=== PATIENT | female | born 1940 | race Caucasian/White ===

== ENCOUNTER → 2017-08-08 | Outpatient (CLI) | payer OTHER, BC ==
[~2017-08-08] MED LIST: AVAPRO300 MG PO; COREG6.25 MG PO; COUMADIN 2.5MG2.5 M1 PO; COUMADIN 5 MG TA5 M1 PO; LASIX 20 MG TAB20 MG; LASIX 40 MG TAB40 M2 PO; LEVOTHYROXIN0.088 MG PO; LEXAPRO20 MG PO; LIPITOR10 MG PO; MIRAPEX1.5 MG PO; NASAL SPRAY30 M3 NASAL; NEXIUM40 MG PO; NORCO 5-325 TA1 EACH PO; PACERONE200 MG PO; SLOW-MAG64 M1 PO; WELLBUTRIN 100100 MG PO; WELLBUTRIN XL150 MG PO; ZPAK PO
== END ==
LOC: MRI 11:12
DX: I63.9 Cerebral infarction, unspecified (principal)

== ENCOUNTER 2018-10-31 22:21 | Observation (INO) | payer OTHER, BC ==
[~2018-10-31] VITALS: Ht 152.4 cm; Wt 99.8 kg
[2018-10-31 22:44] LABS: ABSOLUTE NEUTROPHILS 4.7 thou/uL (1.4-8.2); BASOPHILS 0.5 % (0.0-2.0); EOSINOPHILS 5.1 % (0.0-3.0); HEMATOCRIT 39.3 % (37.0-47.0); HEMOGLOBIN 13.1 gm/dL (12.0-15.0); LYMPHOCYTES 20.6 % (24.0-44.0); MCH 29.4 pg (26.0-34.0); MCHC 33.3 g/dL (28.0-37.0); MCV 88.4 fL (80.0-100.0); MONOCYTES 8.6 % (1.0-8.0); PLATELET COUNT 188 thou/uL (150-400); POLYS 65.2 % (36.0-66.0); RBC 4.45 mil/uL (4.20-5.00); RDW 13.8 % (10.5-14.5); WBC 7.2 thou/uL (4.0-11.0)
[2018-10-31 22:54] LABS: ANION GAP 7 mmol/L (7-16); BUN 29 mg/dL (7-18); CHLORIDE 106 mmol/L (98-107); CO2 31 mmol/L (21-32); CREATININE 1.1 mg/dL (0.6-1.0); GLUCOSE 112 mg/dL (74-106); POTASSIUM 4.1 mmol/L (3.5-5.1); SODIUM 144 mmol/L (136-145)
[2018-10-31 23:02] LABS: ALBUMIN 3.2 g/dL (3.4-5.0); MAGNESIUM 2.1 mg/dL (1.8-2.4); SGOT 17 U/L (15-37); SGPT 8 U/L (30-65); TOTAL BILIRUBIN 0.4 mg/dL (<0.1-1.0); TOTAL PROTEIN 7.2 g/dL (6.4-8.2); TROPONIN-I <0.06 ng/mL (<0.06)
[2018-10-31 23:41] LABS: URINE BILIRUBIN NEGATIVE (Negative); URINE BLOOD NEGATIVE (Negative); URINE CLARITY CLEAR; URINE COLOR YELLOW; URINE GLUCOSE-RANDOM* NEGATIVE (Negative); URINE KETONES NEGATIVE (Negative); URINE NITRITE-REFLEX NEGATIVE (Negative); URINE PROTEIN (DIPSTICK) NEGATIVE (Negative); URINE UROBILINOGEN 0.2 E.U./dl (0.2-1.0)
[2018-10-31 23:42] LABS: URINE LEUKOCYTES-REFLEX NEGATIVE (Negative)
[2018-11-01 00:05] LABS: AMP/METHAMP Negative (Negative); BARBITURATES Negative (Negative); BENZODIAZEPINES Negative (Negative); COCAINE Negative (Negative); METHADONE Negative (Negative); OPIATES Negative (Negative); PCP Negative (Negative)
[2018-11-01 00:35] VITALS: BP 133/33
[2018-11-01] MEDS ORDERED: ACCUNEB SO1.25 MG/1 INH (00:45)
[2018-11-01] MEDS ORDERED: NORVASC5 MG PO (00:45)
[2018-11-01] MEDS ORDERED: ASPIR 8181 MG PO (00:49)
[2018-11-01] MEDS ORDERED: SINEMET 25-1001 EAC1 PO (00:50)
[2018-11-01] MEDS ORDERED: OCCUVITE PO (00:51)
[2018-11-01] MEDS ORDERED: FOLIC ACID1 MG PO (00:51)
[2018-11-01] MEDS ORDERED: PYRIDOXINE HCL50 MG PO (00:52)
[2018-11-01] MEDS ORDERED: LYRICA 50 MG50 MG PO (00:52)
[2018-11-01 01:54] VITALS: BP 107/40
--- NOTE | 2018-11-01 02:00 | NUR ---
Pt. arrived to the unit from the emergency room accompanied by staff and her daughter. Admission assessment and history is completed. Pt. alert and oriented times four. She did c/o pain to her left wrist from carpal tunnel. Po tylenol given (see emar) with some relief of pain noted. Bed alarm is on.
[2018-11-01 02:33] VITALS: BP 156/47
[2018-11-01 04:48] VITALS: BP 134/63
[2018-11-01 07:25] VITALS: BP 131/47
[2018-11-01 10:50] VITALS: BP 131/47
--- NOTE | 2018-11-01 13:44 | EKG ---
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
== END 2018-11-01 11:30 | disposition home or self-care (01) ==
LOC: ER 22:21 → EROBS 11-01 00:12 → 4W 11-01 01:37
PROVIDERS: Emergency Medicine; ADMIT Hospitalist
DX: T42.6X1A Poisoning by other antiepileptic and sedative-hypnotic drugs, accidental (unintentional), initial encounter (principal); I12.9 Hypertensive chronic kidney disease with stage 1 through stage 4 chronic kidney disease, or unspecified chronic kidney disease; N18.9 Chronic kidney disease, unspecified; N17.9 Acute kidney failure, unspecified; E78.00 Pure hypercholesterolemia, unspecified; E03.9 Hypothyroidism, unspecified; R41.82 Altered mental status, unspecified; G20 Parkinson's disease; I48.0 Paroxysmal atrial fibrillation; Z79.82 Long term (current) use of aspirin; Z79.899 Other long term (current) drug therapy; Y92.89 Other specified places as the place of occurrence of the external cause

== ENCOUNTER 2019-07-29 00:35 | Inpatient (IN) | payer OTHER, BC ==
[~2019-07-29] VITALS: Ht 152.4 cm; Wt 104.3 kg
[~2019-07-29 00:35] MED LIST changes: +ASPIR 8181 MG PO; +FOLIC ACID1 MG PO; +LYRICA 50 MG50 MG PO; +NORCO 7.5-3251 EACH PO; +NORVASC5 MG PO; +OCCUVITE PO; +PROAIR HFA8.5 GM INH; +PYRIDOXINE HCL50 MG PO; +SINEMET 25-1001 EAC1 PO
[2019-07-29 00:37] VITALS: BP 139/47
[2019-07-29] MEDS ORDERED: CYMBALTA20 MG PO (01:27)
[2019-07-29] MEDS ORDERED: GLUCOSAMINE HC500 M1 PO (01:28)
[2019-07-29] MEDS ORDERED: OXYBUTYNIN CHLOR5 M1 PO (01:29)
[2019-07-29 01:30] LABS: ABSOLUTE NEUTROPHILS 4.6 thou/uL (1.4-8.2); BASOPHILS 0.5 % (0.0-2.0); EOSINOPHILS 3.3 % (0.0-3.0); HEMATOCRIT 40.4 % (37.0-47.0); HEMOGLOBIN 13.1 gm/dL (12.0-15.0); LYMPHOCYTES 19.7 % (24.0-44.0); MCH 29.6 pg (26.0-34.0); MCHC 32.4 g/dL (28.0-37.0); MCV 91.1 fL (80.0-100.0); MONOCYTES 8.9 % (1.0-8.0); PLATELET COUNT 169 thou/uL (150-400); POLYS 67.6 % (36.0-66.0); RBC 4.44 mil/uL (4.20-5.00); RDW 14.7 % (10.5-14.5); WBC 6.8 thou/uL (4.0-11.0)
[2019-07-29] MEDS ORDERED: VALSARTAN160 MG PO (01:30)
[2019-07-29 01:33] LABS: CALCIUM 8.7 mg/dL (8.5-10.1); POTASSIUM 4.2 mmol/L (3.5-5.1)
[2019-07-29 06:27] LABS: APTT 25.9 Seconds (24.5-32.8); PROTIME 10.7 Seconds (9.3-11.4)
[2019-07-29 06:40] VITALS: BP 87/36
[2019-07-29 07:00] VITALS: BP 109/30
--- NOTE | 2019-07-29 07:50 | NUR ---
ASSUMED CARE OF PATIENT APPROX. 0720. PATIENT A&OX4, NO SIGNS OF DISTRESS, WILL CONTINUE TO MONITOR.
--- NOTE | 2019-07-29 13:51 | NUR ---
PATIENT SEEN BY DR. GARCÍA THIS DATE. PATIENT WITH COMMINUTED FX OF DISTAL HUMERUS. PATIENT HAS NOT BEEN SEEN BY ORTHO OR THERAPIES YET. WILL CONTINUE TO FOLLOW FOR POTENTIAL ACUTE REHAB NEEDS.
--- NOTE | 2019-07-29 15:34 | NUR ---
PT ADMITTED RELATED TO FALL, OPEN L HUMERUS FX. CM REVIEWED CHART AND SPOKE WITH CARE TEAM. CM MET WITH PT AND DTR ROSALIND AT BEDSIDE THIS DAY. PT IS A&O X4. CM ROLE INTRODCUED. PT INDICATED SHE LIVES IN ASSISTED LIVING AT [facility] [place]. 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 PT INDICATED SHE HAD [facility] IN THE PAST AND HAD GONE TO [facility] FOR OP PT. PT INDICATED SHE WOULD HOPE TO BE ABLE TO RETURN HOME ONCE MEDICALLY STABLE BUT THAT SHE WOULD BE RECEPTIVE TO POST ACUTE CARE STAY IF RECOMMENDED UPON DC. CM TO FOLLOW INDICATED WITH DC PLANNING.
[2019-07-29 16:13] VITALS: BP 115/30
[2019-07-29 19:00] VITALS: BP 117/31
[2019-07-29 22:16] VITALS: BP 127/38
[2019-07-30 03:27] VITALS: BP 143/38
[2019-07-30 05:37] LABS: ABSOLUTE NEUTROPHILS 3.7 thou/uL (1.4-8.2); BASOPHILS 0.3 % (0.0-2.0); HEMATOCRIT 36.9 % (37.0-47.0); LYMPHOCYTES 19.5 % (24.0-44.0); MCH 29.8 pg (26.0-34.0); MCHC 32.5 g/dL (28.0-37.0); MCV 91.7 fL (80.0-100.0); MONOCYTES 11.2 % (1.0-8.0); PLATELET COUNT 149 thou/uL (150-400); RBC 4.02 mil/uL (4.20-5.00); RDW 14.7 % (10.5-14.5); WBC 5.6 thou/uL (4.0-11.0)
--- NOTE | 2019-07-30 05:45 | NUR ---
Assessment completed. pt a&ox4. pt had a restful night. pain was controlled with narco and tylenol. morphine wasn't given due to low BP. gerardo in place and patent. no s/s of distress. pt wilde been npo after midnight for possible ortho surgery today. call light withi reach. fall prec in place. will cont to monitor
[2019-07-30 05:47] LABS: CREATININE 0.8 mg/dL (0.6-1.0); MAGNESIUM 1.7 mg/dL (1.8-2.4); POTASSIUM 4.2 mmol/L (3.5-5.1)
[2019-07-30 07:35] VITALS: BP 142/70
--- NOTE | 2019-07-30 11:59 | NUR ---
PATIENT TO HAVE SURGERY ON HER ELBOW TODAY. WILL AWAIT POST-OP ORDERS.
--- NOTE | 2019-07-30 13:15 | NUR ---
Nutrition: Received consult for 'other'. Pt newly admitted 07/29. Here s/p fall, with open L humerus fracture w/ dislocation of elbow. Pt NA this morning and at visit this afternoon, sound asleep. Is NPO with planned surgery today (ORIF per notes). Pt is morbidly obese w/ BMI 44.9 kg/m2 (class III high risk). Will defer wt loss education at this time given upcoming surgery and d/t advanced age in her 80s. Will reassess next week once meal data starts to become available and pt able to resume eating after surgery. Keep as low nutrition risk for the time being. On folic acid and B12 supplementation as well as IVFs. Vitamin D levels pending.
--- NOTE | 2019-07-30 18:32 | NUR ---
CONSULTED WHILE THIS PATIENT WAS IN THE OR- THEY HAD A DIFFICULT TIME KEEPING IV ACCESS. THIS PATIENT WILL BE ON IVF AND CLINDAMYCIN IV. MIDLINE IS APPROPRIATE. DISCUSSED THE PROCEDURE WELL BENIFITS AND RISKS WITH THE PATIENT AND SHE VERBALIZED UNDERSTANDING. THE RIGHT UPPER ARM BRACHIAL WAS WIDLEY PATENT. A #4F POWER MIDLINE WAS PLACED PER HOSPITAL POLICY. LINE WAS TRIMMED TO 12CM AND ADVANCED WITHOUT DIFFICULTY. LINE SECURED AND RELEASED FOR USE
[2019-07-30 18:40] VITALS: BP 108/76
--- NOTE | 2019-07-30 20:13 | NUR ---
PATIENT TRANSFERRED FROM [facility], RECEIVED PATIENT FROM OR, REPORT RECEIVED FROM OR/HEMA. REPORT RECEIVED AT 1830 FROM MATTHEW/RN. IV LOST IN SURGERY, IV TEAM/CRISTA CAME AT 1800 TO REPLACE IV, MIDLINE RIGHT UPPER ARM. PATIENT C/O PAIN 7/10, RECEIVED MORPHINE 1 MG IV, CLEAR LIQUID DIET STARTED. VITAL SIGNS DONE FAMILY AT BEDSIDE.
[2019-07-30 21:00] VITALS: BP 118/78
--- NOTE | 2019-07-30 21:28 | NUR ---
PT A&OX4, VSS, PAIN IN RIGHT ARM. RIGHT ARM IN NATHALIA WRAP AND ELEVATED. FAMILY AT BEDSIDE. PAIN MANAGED WITH MEDICATION. PATIENT TRANSFERED TO 4S AFTER SURGERY, REPORT GIVEN TO ACCEPTING NURSE. BELONGINGS TAKEN TO [facility].
[2019-07-30 21:57] VITALS: BP 107/80
--- NOTE | 2019-07-31 01:16 | NUR ---
ASSESSMENT COMPLETED. PT IS ALERT AND ORIENTED. SOME SLURRING NOTED/DTR REPORTS ITS BEEN THAT WAY SINCE SHE HAD STROKE. PT LEFT HAND ON SLING AND ELEVATED ON A PILLOW-ICE YUNG PROVIDED. PT GIVEN SOME HYDROCODONE AFTER SHE WAS REPOSITIONED. SCDS IN PLACE. BLE ELEVATED ON PILLOWS.CONTINUES ON /NC SATTING WELL ABOVE 95%.OLSON TO D/D WITH GOOD LIGHT YELLOW OUTPUT NOTED. PT SWALLOWS MEDS WITH NO DIFFICULTIES.WILL CONTINUE WITH POC TILL EOS. CALL LIGHT WITHIN REACH.
[2019-07-31 04:19] VITALS: BP 129/48
[2019-07-31 05:50] LABS: HEMATOCRIT 35.8 % (37.0-47.0); HEMOGLOBIN 11.7 gm/dL (12.0-15.0)
[2019-07-31 06:04] LABS: POTASSIUM 4.6 mmol/L (3.5-5.1)
[2019-07-31 07:54] VITALS: BP 120/53
[2019-07-31 11:04] LABS: URINE BILIRUBIN NEGATIVE (Negative); URINE BLOOD NEGATIVE (Negative); URINE CLARITY CLEAR; URINE COLOR YELLOW; URINE GLUCOSE-RANDOM* NEGATIVE (Negative); URINE KETONES NEGATIVE (Negative); URINE LEUKOCYTES-REFLEX NEGATIVE (Negative); URINE NITRITE-REFLEX NEGATIVE (Negative); URINE PROTEIN (DIPSTICK) NEGATIVE (Negative); URINE SPECIFIC GRAVITY >= 1.030 (1.005-1.035); URINE UROBILINOGEN 0.2 E.U./dl (0.2-1.0)
--- NOTE | 2019-07-31 15:33 | NUR ---
Following for d/c planning needs. Pt is scheduled for surgery on Saturday. She does not want to go to [place], but [facility]. Will follow after surgery.
[2019-07-31 17:22] VITALS: BP 128/57
--- NOTE | 2019-07-31 17:30 | NUR ---
PAGED REFERING PT'S BILATERAL EDEMA AT 1600 AND HE CALLED BACK AT 1630 AFTER GIVING UPDATE HE RESPONDED HE WILL COME SEE PT LATER TODAY TO CHECK ON HER. APROX. 1700 PATIENT STATED THE SWELLING WAS INCREASING AND I PAGED DR. QUILES AGAIN. TO UPDATE. WAITING ON FEEDBACK
[2019-07-31 20:10] VITALS: BP 133/45
[2019-08-01] VITALS (7 sets, daily range): BP systolic 109–166; BP diastolic 33–75
--- NOTE | 2019-08-01 04:35 | NUR ---
ASSESSMENT COMPLETED. PT IS ALERT AND ORIENTED. LEFT ARM IN SLING. PT BEEN NPO SINCE [facility] FOR L HUMERUS ORIF TODAY.CONSENT SIGNED. R HAND WITH SOME EDEMA-ELEVATED ON PILLOW. OLSON TO D/D WITH DARK YELLOW URINE. PT TOLERATED CPAP THRO THE NIGHT.BOTH MORPHINE AND HYDROCODONE GIVEN FOR PAIN, WITH SOME FAIR RELIEF, PT REPORTED FEELING COMFORTABLE. PT DENIES DISCOMFORT AND NEED TO BE REPOSITIONED IN BED-BLE WITH SCDS IN PLACE AND ALSO ELEVATED-OFFLOADED.PT REPORTS PASSING FLATUS BUT NO BM YET. PT REPORTS ANXIETY ABOUT STANDING UP TO WALK TO THE BATHROOM, BECAUSE SHE TENDS TO FALL BACKWARDS AND IT SCARES HER.REASSURANCE PROVIDED THAT WITH ASSIST, SHE WILL NOT FALL. PT NOT READY TO GET OUT OF BED WHATSOEVER AT THIS POINT. CALL LIGHT WITHIN REACH.WILL CONTINUE WITH POC TILL EOS.
--- NOTE | 2019-08-01 12:29 | O ---
[facility] [place] [address] OPERATIVE REPORT Name: JACQUES KENNEDY Room #: 447-P ADM IN M.R.#: [id number] Admission: 07/29/19 Attend Phys: Orville Minor MD Discharge: Date of : 38 Report #: [id number] THIS REPORT FOR: //name// CC: Orville Cox DATE OF SERVICE: 07/30/2019 PREOPERATIVE DIAGNOSIS: Left possible open distal humerus fracture. POSTOPERATIVE DIAGNOSIS: Left grade 2 open distal humerus fracture. SURGEON: Gemma Dacosta MD ANESTHESIA: General mask anesthesia. ESTIMATED BLOOD LOSS: 5 mL. TOURNIQUET TIME: 17 minutes. PROCEDURE PERFORMED: Irrigation and debridement, left grade 2 open distal humerus fracture. COMPLICATIONS: None. CONDITION: Stable. DISPOSITION: Recovery room. INDICATIONS: The patient is an 79-year-old female who was admitted on the date of admission, it was not communicated that this fracture was opened. The initial discussion with the original orthopedic surgeon and the original plan was for this patient to undergo open reduction and internal fixation; however, upon review of the ER notes, the fracture was found to be open. She has been in a splint. I discussed the diagnosis as well as treatment options with the patient and her family. Discussed the possible plans of irrigation and debridement versus possible irrigation and debridement with fixation. The risks, benefits, alternatives and complications were discussed including but not limited to infection, damage to vessels or nerves, nonunion, malunion, hardware failure, hardware rotation stiffness. We discussed that she will have some level of stiffness in the elbow due to the intra-articular location of the fracture and significant comminution. Informed consent was obtained. The patient and her family were encouraged to ask questions and questions answered to the best of my ability. The correct extremity was identified and labeled by myself after verbal confirmation of the patient as well as visual confirmation and signed informed consent. [facility] [address] [place] [address] OPERATIVE REPORT Name: JACQUES KENNEDY Room #: 447-P [facility] IN [facility].#: [id number] Admission: 07/29/19 Attend Phys: Orville Minor MD Discharge: Date of : 38 Report #: [id number] DESCRIPTION OF PROCEDURE: The patient was brought to the operating room. After anesthesia was obtained, the splint was removed. She had a large 5 cm superficial skin flap directly posterior and then a 1.5 cm on wound at approximately a few centimeters distal to the tip of the elbow. The tip of the olecranon, there was a significant amount of blood emanating from this area. The dressing is saturated as well. At this point, the fracture was determined to be highly likely open and so she was placed on to the OR bed in a supine position. The left upper extremity was sterilely prepped and draped in the usual fashion. Final timeout was taken to verify correct patient, operative procedure, and site, all concurred. The tourniquet had been placed over padding. The wound was extended both proximally and distally for a total length of approximately 4 cm. Dissection was carried down through subcutaneous tissue with tenotomy scissors. There was a communication to on the medial side of the olecranon directly into the joint and the fracture site. This area was then thoroughly irrigated with 6 liters of antibiotic saline using a Pulsavac. There was no obvious sign of infection. Once this was thoroughly irrigated, the skin was closed with 3-0 nylon suture. The wounds were dressed with Xeroform and sterile gauze. She was placed in a bulky dressing and a volar and dorsal slab splint. All fingers were pink with brisk capillary refill at the conclusion of case after deflation of tourniquet and application, all sponge and needle counts were correct. The patient was transferred to postoperative care in stable condition. <ELECTRONICALLY SIGNED> By: Gemma Dacosta MD 08/01/19 1229 1719 1748 Gemma Dacosta MD /nt
--- NOTE | 2019-08-01 19:58 | NUR ---
ASSUMED CARE OF PATIENT AT 0715, PATIENT ALERT AND ORIENTED X 4. PATIENT IS NPO AFTER MIDNIGHT FOR SURGERY TODAY. VSS THIS AM PRIOR TO SURGERY. PATIENT LEFT THE UNIT AT 0830, ARRIVED BACK AT 1500. VITAL SIGNS TAKEN BP ELEVATED 185/77, THIS RN GAVE HYDRALAZINE 10 MG IV AND PATIENT C/O PAIN, MORPHINE 1 MG IV. PATIENT HAS LEFT SPLINT WITH ICE PACK TO LEFT ARM. SCD'S IN [place]CE. PATIENT RECEIVED 2 IV ANTIBIOTICS THIS SHIFT, AND CONTINUES WITH NS AT 100CC/HR. PATIENT ON CLEAR LIQUIDS. PATIENT TOOK SOME OF HER MEDS, BUT REFUSED SOME OF THEM. O2 AT 4 LITERS/NC WHEN SHE ARRIVED BACK FORM SURGERY, CPAP AT NIGHT. FAMILY AT BEDSIDE ALL DAY. OLSON IN PLACE, WITH ADEQUATE OUTPUT. WILL CONTINUE TO MONITOR.
--- NOTE | 2019-08-02 02:57 | NUR ---
ASSUMED CARE OF PT @1900 PT ASSESSED AT START OF SHIFT A&OX4 THIS SHIFT AND FAMILY AT BEDSIDE DURING ASSESSMENT. C/O PAIN HYDROCODONE AND MORPHINE GIVEN SEE EMAR AND PT SLEPT THROUGH THE NIGHT. CPAP ON AT BEDTIME AND ON NC 2L OF O2. DRESSING INTACT IN LFT ARM FROM POST SURGERY DURING THE DAY. ICE PACK PLACED FOR NON PHARMACOLOGICAL RELIEF. FOLLEY CATH INTACT AND FALL PREC IN PLACE WILL CONT WITH POC TILL EOS.
[2019-08-02 04:39] LABS: HEMATOCRIT 34.1 % (37.0-47.0)
[2019-08-02 04:43] VITALS: BP 144/48
[2019-08-02 04:56] LABS: POTASSIUM 4.5 mmol/L (3.5-5.1)
[2019-08-02 09:18] VITALS: BP 113/60
--- NOTE | 2019-08-02 11:48 | EKG ---
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: MIKKI : 1940 Requested By: Fermín Dsouza Order Number: [id number] MD: Victor Hugo Simon Measurements Intervals [place] Rate: 129 P: ME: QRS: -15 QRSD: 148 T: 160 QT: 335 QTc: 491 Interpretive Statements Supraventricular rhythm, uncertain mechanism Left bundle branch block Compared to ECG 10/31/2018 22:38:23 heart rate has increased Electronically Signed On 08-02-2019 11:47:54 CDT by Victor Hugo Simon [email or web address] <ELECTRONICALLY SIGNED> By: Victor Hugo Simon MD, [facility] 08/02/19 1147 1255 1255 Victor Hugo Simon MD, FAC /EPI
--- NOTE | 2019-08-02 16:31 | NUR ---
PT ASSESSED AT CHANGE OF SHIFT AND NOTED TO HAVE HEART RATE AT 130. PT DENIED SOB OR CHEST PAIN. HX OF AFIB AND TAKING ON COREG AT HOME. DR. PLUNKETT AND INFORMED OF ABOVE COREG RESUMED AND AFTER FEW HOURS HEART RATE DROPPED BACK TO 70'S. O2 DECREASED TO 2LNC. PT GIVEN LACUTLOSE AND SENNA FOR CONSTIPATION. PAIN MANAGED WELL W/ NORCO. TURNED Q2HRS. FAMILY AT BEDSIDE.
[2019-08-02 17:43] VITALS: BP 116/52
[2019-08-02 19:27] VITALS: BP 138/51
[2019-08-03 03:42] VITALS: BP 154/60
[2019-08-03 04:11] LABS: HEMATOCRIT 33.5 % (37.0-47.0); HEMOGLOBIN 11.1 gm/dL (12.0-15.0); MCH 29.8 pg (26.0-34.0); MCHC 33.1 g/dL (28.0-37.0); RBC 3.72 mil/uL (4.20-5.00); RDW 14.4 % (10.5-14.5)
[2019-08-03 04:19] LABS: CALCIUM 7.9 mg/dL (8.5-10.1); CREATININE 0.7 mg/dL (0.6-1.0); MAGNESIUM 1.6 mg/dL (1.8-2.4); POTASSIUM 4.1 mmol/L (3.5-5.1)
--- NOTE | 2019-08-03 04:56 | NUR ---
ASSUMED CARE OF PT @1900 PT ASSESSED AT START OF SHIFT. WITH C/O PAIN IN LFT ARM. PAIN MEDS GIVEN SEE EMAR PT REPOSITIONED FOR COMFORT NOT TOLERATING TURN WELL MOANS. ICE PACK PLACED ON ARM. GOOD SENSATION AND CIRCULATION ON THE LFT ARM. FOLLEY CATHETER IN PLACE. PO FLUIDS GIVEN FREQ. WEARS C PAP @ NIGHT. DIDNT WANT CPAP FOR TONIGHT STATED COMFORTABLE. ON 2L OF O2 AND OXYGEN PROBE ON. WILL CONT WITH POC TILL EOS.
[2019-08-03 08:37] VITALS: BP 125/65
[2019-08-03 16:12] VITALS: BP 137/42
--- NOTE | 2019-08-03 18:30 | NUR ---
CALLED LAB AND SPOKE WITH STAFF SPUTUM CULTURE INCLUDES GRAM STAIN [facility] PICKED UP AND SHOULD HAVE RESULTS IN 24- 48 HOURS.
[2019-08-03 20:13] VITALS: BP 129/48
[2019-08-04 00:15] VITALS: BP 112/46
--- NOTE | 2019-08-04 04:28 | NUR ---
ASSUMED PATIENT CARE AT 2144. ASSESSMENT CHARTED; PATIENT CONTINUES TO HAVE SWELLING IN LEFT ARM AND HAND. PATIENT DENIES PAIN BUT GRIMACES WHEN BEING REPOSITIONED. MEDICATIONS GIVEN PER MAR. PATIENT IS ALERT AND ORIENTEDX4 BUT SEEMS LETHARGIC. WHEN COMMUNICATING, SHE SPEAKS SOFTLY. VSS. PATIENT ON BEDREST TONIGHT AND WILL BE REPOSITIONED Q2HRS. OLSON IS PRODUCING LAURIE COLORED URINE. ALEXA CARE GIVEN. SMALL RED AREA NOTED ON L ABDOMEN UNDER A SKIN FOLD. BARRIER CREAM APPLIED. SUPPOSITORY GIVEN. PATIENT WILL BE MINITORED FOR A BM AND PAIN. WILL CONTINUE TO MONITOR FREQUENTLY AND FOLLOW POC.
[2019-08-04 05:56] VITALS: BP 127/40
[2019-08-04 06:14] LABS: HEMATOCRIT 27.7 % (37.0-47.0); HEMOGLOBIN 9.2 gm/dL (12.0-15.0); MCH 29.8 pg (26.0-34.0); MCHC 33.2 g/dL (28.0-37.0); MCV 89.8 fL (80.0-100.0); RBC 3.08 mil/uL (4.20-5.00); RDW 14.6 % (10.5-14.5); WBC 11.4 thou/uL (4.0-11.0)
[2019-08-04 06:33] LABS: CALCIUM 7.5 mg/dL (8.5-10.1); CREATININE 0.7 mg/dL (0.6-1.0); POTASSIUM 4.5 mmol/L (3.5-5.1)
[2019-08-04 08:15] VITALS: BP 120/41
--- NOTE | 2019-08-04 08:30 | EKG ---
[address] [address] ELECTROCARDIOGRAM REPORT Name: RONSILVERJACQUES ANGELA Room #: 447-P ADM IN M.R.#: [id number] Admission: 07/29/19 Attend Phys: Orville Minor MD Discharge: Date of : 38 Report #: [id number] THIS REPORT FOR: //name// [facility] Test Date: 2019-08-02 Test Time: 10:03:41 Pat Name: JACQUES KENNEDY Department: Room: 447 P Gender: F Bung Remover: Melany CUENCA : 1940 Requested By: Anup Casas Order Number: [id number] MD: Francois Rowe Measurements Intervals [address] Rate: 131 P: 51 DE: 251 QRS: -6 QRSD: 142 T: 160 QT: 314 QTc: 464 Interpretive Statements Sinus tachycardia Prolonged DE interval Left atrial enlargement Left bundle branch block Compared to ECG 10/31/2018 22:38:23 Atrial abnormality now present Sinus rhythm no longer present Electronically Signed On 08-04-2019 8:30:16 CDT by Francois Rowe [email or web address] <ELECTRONICALLY SIGNED> By: Francois Rowe MD 08/04/19 0830 Francois Rowe MD /EPI
--- NOTE | 2019-08-04 10:20 | NUR ---
FAXED REFERRAL TO [facility] RECEIVED CONFIRMATION AND NOTIFIED CHRISTINA IN ADM THAT PT WILL HAVE THERAPY TODAY AND WILL FAX NOTES ONCE AVAILABLE.
--- NOTE | 2019-08-04 14:21 | NUR ---
PT'S SON HAD STOPPED CM YESTERDAY AND INDICATED THAT HE HAD LA PAPERWORK THAT HE NEEDED COMPLETED AND THAT HE NEEDS A WORK NOTE INDICATEING THAT HIS MOTHER HAD BEEN HOSPITALIZED SINCE 07/29/19. [facility] PAPERWORK WAS EMAILED TO CM, CM PRINTED IT AND PROVIDED IT TO HOSPITALIST FOR COMPLETION. PT HAS BEEN ACCEPTED FOR ADMISSION TO [facility] WITH ANTICPATED DC TOMORROW. PT AND SON AWARE AND AGREEALBE. CM TO FOLLOW INDICATED WITH DC PLANNING.
--- NOTE | 2019-08-04 16:20 | NUR ---
CASE DISCUSSED WITH DR SILVA AND SHE SAYS SHE HAD ORDERED A SPECIAL BRACE FOR PT AND PT NEEDS TO BE FITTED FOR THIS. DR SILVA S/W HANGAR AND WANTS THEM TO CALL HER RELATED TO THIS SPECIALIZED BRACE.
[2019-08-04 19:49] VITALS: BP 117/50
[2019-08-05 04:16] VITALS: BP 115/49
--- NOTE | 2019-08-05 04:22 | NUR ---
ASSUMED PT CARE ON 08/04/19. PT SON WAS AT BEDSIDE FOR THE FIRST FEW HOURS OF THE SHIFT. PT HAD A COMPLAINT OF PAIN ON THE LEFT UPPER EXTREMITY. TYLENOL WAS ADMINISTERED WITH THE EVENING MEDICATION. THE PT EXPRESSED PAIN RELIEF. PT URINE IS LAURIE IN COLOR. PT HAD A SMEAR WHEN WE CHANGED HER. PT WAS TURNED WHEN NECESSARY. PT HAS NO COMPLAINTS OF PAIN WHEN TURNED. CHANGED ICE IN HER ICE PACK. KEPT HER LEFT ARM ELEVATED. PT HAS EDEMA IN UPPER LEFT EXTREMITY. PT IS [facility]. PT IS WAITING TO HEAR FROM ONLINE MERCHANDISING MANAGER ABOUT THE BRACE NEEDED FOR HER LEFT ARM. PT IS ASLEEP IN ROOM. WILL CONTINUE TO MONITOR.
[2019-08-05 05:04] LABS: HEMATOCRIT 26.8 % (37.0-47.0); HEMOGLOBIN 8.9 gm/dL (12.0-15.0); MCHC 33.4 g/dL (28.0-37.0); MCV 89.7 fL (80.0-100.0); RBC 2.99 mil/uL (4.20-5.00); RDW 14.8 % (10.5-14.5); WBC 10.9 thou/uL (4.0-11.0)
[2019-08-05 05:12] LABS: CALCIUM 8.1 mg/dL (8.5-10.1); CREATININE 0.9 mg/dL (0.6-1.0); POTASSIUM 4.6 mmol/L (3.5-5.1)
[2019-08-05 08:22] VITALS: BP 122/61
[2019-08-05 10:45] VITALS: BP 122/61
--- NOTE | 2019-08-05 10:48 | NUR ---
Pt dcing to [facility] today. Dc planner internship to fax orders and confirm stretcher van transport around 2pm this afternoon. Son at bedside and updated along with the pt. Chart copy in progress. Order for splint faxed to [facility] along with pt's face sheet. Bravo at [facility] has spoken with Dr. Dacosta and he will deliever to [facility] tomorrow. Nursing to call report.
[2019-08-05] MEDS ORDERED: IBUPROFEN 200200 M1 PO (12:02)
[2019-08-05] MEDS ORDERED: SENNA-TIME S T1 EACH PO (12:03)
[2019-08-05] MEDS ORDERED: NORCO 5-325 TA1 EAC1 PO (12:03)
[2019-08-05] MEDS ORDERED: MIRALAX17 GM PO (12:03)
[2019-08-05] MEDS ORDERED: PROTONIX40 M1 PO (12:04)
[2019-08-05] MEDS ORDERED: CLINDAMYCIN HC300 MG PO (12:05)
--- NOTE | 2019-08-05 13:52 | NUR ---
FAXED DC ORDERS/SUMMARY TO [facility] RECEIVED CONFIRMATION AND SPOKE WITH CHRISTINA IN ADM SHE ARRANGED TRANSPORT BY STRETCHER VAN AT 1400 TODAY. FAMILY AT BEDSIDE AND NOTIFIED. UNIT NOTIFIED AND CHART COPY PER US. RN TO CALL REPORT AT [phone].
--- NOTE | 2019-08-07 12:58 | HC ---
[facility] [place] [address] CONSULTATION Name: JACQUES KENNEDY Room #: 447-P [facility] IN .R.#: [id number] Admission: 07/29/19 Attend Phys: Orville Minor MD Discharge: 08/05/19 Date of : 38 Report #: [id number] THIS REPORT FOR: //name// CC: Orville Tabaresie Kenny DATE OF SERVICE: 07/29/2019 HISTORY OF PRESENT ILLNESS: The patient is an 79-year-old white female with a prior history of Parkinson's disease, prior CVA, premorbid walker ambulator who had a fall in her laundry room and sustained a left elbow fracture. This is noted to be a comminuted fracture. Orthopedics has been consulted. We are seeing her in rehabilitation medicine consultation. PAST MEDICAL HISTORY: Includes peripheral vascular disease, hypothyroidism, atrial fibrillation, controlled; GERD; depression; hypertension; elevated cholesterol. PAST SURGICAL HISTORY: Right total hip replacement, cardiac arrest, status post cardiac arrest, bilateral total knee replacements, left shoulder rotator cuff tear, but not repaired. Obesity, sleep apnea with CPAP, right third toe amputation. MEDICATIONS: Please see the full medication listing. ALLERGIES: KEFLEX, AMOXICILLIN, NEURONTIN, MYRBETRIQ. HABITS: No history of tobacco or alcohol abuse. SOCIAL HISTORY: Independent living apartment at [place], lives alone. Used a walker. She is right handed. She was able to take care of her own ADLs, dressing and IADLs with the walker. There is a son that lives in the area. REVIEW OF SYSTEMS: No current complaints of chest pain, shortness of breath or abdominal discomfort. PHYSICAL EXAMINATION: GENERAL: An 79-year-old pleasant, obese white female in no obvious distress. VITAL SIGNS: Last recorded temperature 98.3, pulse 64, respirations 13, blood pressure 109/30. The patient is alert, pleasant. HEENT: Appeared to be benign. She currently has nasal prong O2 in place. She follows basic 1 step commands. EXTREMITIES: She has functional range of motion of that right upper extremity, strength is grade 4-/5. DTRs are trace to 1. Left upper extremity is wrapped and splinted currently. She can wiggle her fingers. I did not examine the left upper extremity, otherwise. No lower extremities, no focal calf swelling. She [address] [address] CONSULTATION Name: JACQUES KENNEDY Room #: 447-P [facility] IN M.R.#: [id number] Admission: 07/29/19 Attend Phys: Orville Minor MD Discharge: 08/05/19 Date of : 38 Report #: [id number] had prior incisions from her total joint replacements. There is no calf swelling. I would grade her strength at probably a 3+/5. She may be a 4-/5. ASSESSMENT: An 79-year-old white female with the following problem list: 1. Left comminuted elbow fracture, post fall. 2. Parkinson's disease with premorbid gait instability. 3. Prior history of a cerebrovascular accident. 4. Multiple total joint replacements including bilateral total knees and the right total hip. 5. Left rotator cuff tear. 6. Prior history of a cardiac arrest. PLAN: Orthopedics to consult. Agree with PT and OT consults as ordered as well. Discussion with the son that she is likely going to need some rehabilitation therapies as she further medically stabilizes. I do not see her going directly back to her independent living apartment with the severity of her left elbow fracture. We will be glad to follow regarding her rehab therapy needs. <ELECTRONICALLY SIGNED> By: Mychal Infante MD 08/07/19 1258 1122 1408 Mychal Infante MD /nt
--- NOTE | 2019-08-07 16:41 | O ---
[facility] [place] [address] OPERATIVE REPORT Name: JACQUES KENNEDY Room #: 447-P [facility] IN M.R.#: [id number] Admission: 07/29/19 Attend Phys: Orville Minor MD Discharge: 08/05/19 Date of : 36 Report #: [id number] THIS REPORT FOR: //name// CC: Orville Tabaresie Kenny DATE OF SERVICE: 08/01/2019 PREOPERATIVE DIAGNOSIS: Left grade 2 open distal humerus fracture. POSTOPERATIVE DIAGNOSIS: Left grade 2 open distal humerus fracture. PROCEDURE PERFORMED: 1. Irrigation and debridement, left distal humerus fracture. 2. Open reduction and internal fixation of left distal humerus fracture with olecranon osteotomy and fixation and ulnar nerve decompression and anterior subcutaneous transposition. SURGEON: Gemma Dacosta MD ASSISTANTS: Dr. Murray Lucia and Dr. Chasity Brizuela. ANESTHESIA: General endotracheal anesthesia. ESTIMATED BLOOD LOSS: 25 mL. TOURNIQUET TIME: ____ minutes. COMPLICATIONS: None. CONDITION: Stable. DISPOSITION: Recovery room. INDICATIONS: The patient is an 79-year-old female with the above-mentioned diagnosis. She elects for operative treatment. The risks, benefits, alternatives and complications were discussed including but not limited to infection, damage to vessels or nerves, nonunion, malunion, hardware failure, hardware ____ stiffness. 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 Informed consent was obtained. The correct extremity was identified and labeled by myself after verbal confirmation of the patient as well as visual confirmation and signed informed consent. DESCRIPTION OF PROCEDURE: The patient was brought back to the operating room. She underwent general anesthesia. She was then placed in the lateral position with an axillary roll. Careful attention placed to padding bony prominences and [facility] [address] [place] [address] OPERATIVE REPORT Name: JACQUES KENNEDY ANGELA Room #: 447-P [facility] IN [facility].#: [id number] Admission: 07/29/19 Attend Phys: Orville Minor MD Discharge: 08/05/19 Date of : 38 Report #: [id number] neurovascular structures. The left upper extremity was sterilely prepped and draped in usual fashion. Final timeout was taken to verify correct patient, operative procedure, operative site, all concurred. A sterile tourniquet was applied. The arm was elevated, exsanguinated and tourniquet inflated. Next, the prior wound was opened and extended for a total of approximately 20 cm along the posterior aspect of the elbow, curving radially at the tip of the olecranon. Dissection was carried down through subcutaneous tissue with tenotomy scissors. The area communicating with the fracture site was easily identified. Next, the dissection was carried down all the way to the triceps tendon. There was direct communication with the medial side of the olecranon. Dissection was carried down around the lateral side and a mosquito hemostat and then a lap sponge was placed around the olecranon. Next, a distally angulated Chevron osteotomy was performed with an oscillating saw and then finished with an osteotome. Prior to completing the cut, a 4.5 mm drill bit was used to create a drill hole for anticipated screw placement later. Next, this was retracted proximally and the ulnar nerve was identified. It was moderately edematous at the level of the fracture site. It was mobilized for approximately 10 cm proximal and 5-10 cm distal to the fracture site. It was mobilized and carefully protected with a vessel loop without any instrumentation on the vessel loop. Next, the fracture site was identified. It was significantly comminuted. The area was thoroughly irrigated during the portion of the fracture fixation. The fracture site was irrigated with 3 liters of antibiotic saline using a Pulsavac. Next, the fragments were evaluated. There were some small articular fragments that were removed and placed on the back table. These were unable to be fixed. These were approximately 3 mm fragment or just simply pieces of articular cartilage without any bony attachments. First, attention was placed to the lateral column. The lateral column was reduced quite nicely and a posterolateral plate was applied to the bone. A K-wire was driven across from medial side prior to placing a plate on the bone. The plate was then placed on the bone and a cortical screw was placed into the gliding hole proximally. The position was checked and then 2 posterior to anterior locking screws were placed distally and then using the variable angle portion, 2 screws were placed into the trochlea from the lateral side. These had quite stable fixation. Next, a second screw was placed into the shaft in the lateral plate. Next, attention was placed to the medial side. A distal medial plate was placed. The implants used were from [employer] including a 6.5 mm cancellous screw at the end for the olecranon fixation. Next, a distal medial plate was applied to the bone. It was placed on the bone with a cortical screw in the gliding hole proximally and then two variable angle screws were used distally. The most distal screw hole was not utilized due to the potential problem hitting one of the screws going into the trochlea and due to the fracture line being distal to the plate. The 2 screws from the medial side of the plate into the trochlea had good fixation. One screw was unable to be completely threaded into the plate due to stripping of the screw head. Next, few remaining screws were drilled, measured and the appropriate size screws were placed multiple times. AP views were taken and lateral views were taken at the end which showed good position of the hardware [facility] [address] [place] [address] OPERATIVE REPORT Name: JACQUES KENNEDY ANGELA Room #: 447-P [facility] IN ..#: [id number] Admission: 07/29/19 Attend Phys: Orville Minor MD Discharge: 08/05/19 Date of : 38 Report #: [id number] and good position of the fracture. The olecranon fracture was reduced and originally a 100 mm screw was placed; however, this was too distal and so a 90 mm screw was placed. This had excellent compression. There was a mild step-off but due to the potential for losing all fixation, this position was left in place. This was also noted for the trochlear step-off. This fragment was fairly small and any change in hardware may comminute or split the fragments. The elbow was taken through a range of motion, it was stable. There was no gapping at the fracture site. The elbow was stable in varus and valgus stress. The area was thoroughly irrigated. The ulnar nerve was transposed subcutaneously by using an 0 Vicryl suture suturing some of the anterior subcutaneous fat anterior to the medial epicondyle. The ulnar nerve did not have any compression or kinked points with elbow motion. The deep musculature was closed with 0 Vicryl. The deep subcutaneous tissue was closed with 0 Vicryl. The superficial subcutaneous tissue was closed with 2-0 Vicryl. A deep drain was placed. This was affixed to the skin with OpSite. The skin was closed with janine. The wound was dressed with Xeroform and sterile gauze. She was placed in a bulky dressing and an anterior ____ with the elbow flexed to approximately 30 degrees. All fingers were pink with brisk capillary refill. At the conclusion of case after deflation of tourniquet, all sponge and needle counts were correct. The patient was transferred to postoperative recovery room in stable condition. <ELECTRONICALLY SIGNED> By: Gemma Dacosta MD 08/07/19 1641 [id number] 1345 Gemma Dacosta MD /nt
== END 2019-08-05 16:21 | DRG 492 ==
LOC: ER 00:35 → EROBS 02:40 → 4S 02:40 → 4W 02:40 → 4S 07-30 14:26
PROVIDERS: Emergency Medicine; Hospitalist; Internal Medicine; Nurse Practitioner; Orthopaedic Surgery Hand Surgery; ADMIT Hospitalist
PROC: 2W3DX1Z Immobilization of Left Lower Arm using Splint (ICD-10-PCS; 2019-07-29)
PROC: 05HY33Z Insertion of Infusion Device into Upper Vein, Percutaneous Approach (ICD-10-PCS; principal; 2019-07-30)
PROC: 0JDH0ZZ Extraction of Left Lower Arm Subcutaneous Tissue and Fascia, Open Approach (ICD-10-PCS; principal; 2019-07-30)
PROC: 0PSG04Z Reposition Left Humeral Shaft with Internal Fixation Device, Open Approach (ICD-10-PCS; 2019-08-01)
PROC: 0PSL04Z Reposition Left Ulna with Internal Fixation Device, Open Approach (ICD-10-PCS; 2019-08-01)
PROC: 5A09357 Assistance with Respiratory Ventilation, Less than 24 Consecutive Hours, Continuous Positive Airway Pressure (ICD-10-PCS; 2019-08-01)
DX: S52.022B Displaced fracture of olecranon process without intraarticular extension of left ulna, initial encounter for open fracture type I or II (principal); S42.402B Unspecified fracture of lower end of left humerus, initial encounter for open fracture; Z68.41 Body mass index [BMI] 40.0-44.9, adult; D62 Acute posthemorrhagic anemia; I48.0 Paroxysmal atrial fibrillation; N18.9 Chronic kidney disease, unspecified; Z96.641 Presence of right artificial hip joint; G20 Parkinson's disease; E78.00 Pure hypercholesterolemia, unspecified; Z96.653 Presence of artificial knee joint, bilateral; F32.9 Major depressive disorder, single episode, unspecified; Z79.01 Long term (current) use of anticoagulants; Z96.1 Presence of intraocular lens; I73.9 Peripheral vascular disease, unspecified; E03.9 Hypothyroidism, unspecified; K21.9 Gastro-esophageal reflux disease without esophagitis; E66.9 Obesity, unspecified; I12.9 Hypertensive chronic kidney disease with stage 1 through stage 4 chronic kidney disease, or unspecified chronic kidney disease; E05.90 Thyrotoxicosis, unspecified without thyrotoxic crisis or storm; E78.5 Hyperlipidemia, unspecified; W01.0XXA Fall on same level from slipping, tripping and stumbling without subsequent striking against object, initial encounter; N32.81 Overactive bladder; E83.42 Hypomagnesemia; E53.8 Deficiency of other specified B group vitamins; K59.00 Constipation, unspecified; R00.1 Bradycardia, unspecified; Z98.42 Cataract extraction status, left eye; Z98.41 Cataract extraction status, right eye; Z89.421 Acquired absence of other right toe(s); Z79.899 Other long term (current) drug therapy; Z79.82 Long term (current) use of aspirin; Z88.8 Allergy status to other drugs, medicaments and biological substances; Z86.73 Personal history of transient ischemic attack (TIA), and cerebral infarction without residual deficits; Z99.81 Dependence on supplemental oxygen; Y93.89 Activity, other specified; Y92.89 Other specified places as the place of occurrence of the external cause; Y99.8 Other external cause status; S46.012A Strain of muscle(s) and tendon(s) of the rotator cuff of left shoulder, initial encounter
CPT/HCPCS: 10040; 10195; 27000; 50010; 50101; 50172; 50341; 50386; 50417; 50951; 51129; 51412; 53078; 55430; 56524; 56525; 56527; 56667; 57006; 57091; 57103; 57179; 62110; 62900; 70005

== ENCOUNTER 2020-02-25 12:06 | Day surgery (SDC) | payer OTHER, BC ==
[~2020-02-25] VITALS: Ht 152.4 cm; Wt 90.7 kg
--- NOTE | ~2020-02-25 | O ---
[facility] [place] [address] OPERATIVE REPORT Name: JACQUES KENNEDY Room #: DEP [facility].#: [id number] Admission: 02/25/20 Attend Phys: Gemma Dacosta, Discharge: 02/25/20 Date of : 38 Report #: [id number] THIS REPORT FOR: cc: Katrin Cox MD, Stephanie B. MD Deardorff,Gemma Mackenzie MD ~ CC: Katrin Dacosta DATE OF SERVICE: 02/25/2020 PREOPERATIVE DIAGNOSES: 1. Left loose deep hardware painful. 2. 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 POSTOPERATIVE DIAGNOSES: 1. Left loose deep hardware painful. 2. 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 PROCEDURES PERFORMED: 1. Left deep painful hardware removal. 2. Left incision and debridement of the olecranon. SURGEON: Gemma Dacosta MD. ANESTHESIA: General mask anesthesia. ESTIMATED BLOOD LOSS: 1 mL. TOURNIQUET TIME: 29 minutes. COMPLICATIONS: None. CONDITION: Stable. DISPOSITION: Recovery room. SPECIMENS: Swab and tissue was sent specifically for mycobacteria. Screw was removed. INDICATIONS: The patient is an 79-year-old female with the above-mentioned diagnoses. She reports persistent pain at the posterior aspect of the elbow. The risks, benefits, alternatives and complications were discussed including but not limited to inability to resolve any infection, damage to vessels or nerves, hardware problems. The bone not being healed enough sustaining a fracture [facility] [address] [place] [address] OPERATIVE REPORT Name: JACQUES KENNEDY ANGELA Room #: DEP [facility]..#: [id number] Admission: 02/25/20 Attend Phys: Gemma Dacosta, Discharge: 02/25/20 Date of : 38 Report #: [id number] through the hardware. The patient's son, Oskar was present at bedside. Informed consent was obtained. The correct extremity was identified and labeled by myself after verbal confirmation of the patient as well as visual confirmation and signed informed consent. DESCRIPTION OF PROCEDURE: The patient was brought back to the operating room and placed on the operating table in a supine position. Left upper extremity was sterilely prepped and draped in the usual fashion. Final timeout was taken to verify correct patient, operative procedure, operative site, all concurred. The tourniquet was placed over padding. The left upper extremity was sterilely prepped and draped in the usual fashion. Final timeout was taken to verify correct patient, operative procedure, and site, all concurred. The arm was elevated, exsanguinated, tourniquet inflated. Next, approximately 5-cm posterior incision was made using the prior incision at the level of the olecranon. Dissection was carried down through subcutaneous tissue with tenotomy scissors. A small portion of the triceps was split. The screw was removed without difficulty. It had actually excellent fixation. There was no drainage. The canal was then curetted with a curette and that bone was sent off to microbiology as a tissue specimen and swab was sent as well. The area was thoroughly irrigated with 3 liters of antibiotic saline using the Pulsavac with 2 liters and an Asepto for 1 liter. The skin was closed with 3-0 nylon suture. No deep sutures were placed due to the potential for infection. The subcutaneous tissue was infiltrated with approximately 5 mL of 0.25% Marcaine. She was placed in a bulky dressing and a posterior slab elbow splint with the elbow flexed to approximately 30 degrees. All fingers were pink with brisk capillary refill at the conclusion of case after deflation of tourniquet. All sponge and needle counts were correct. The patient was transferred to postoperative recovery room in stable physician in stable condition. After the cultures were taken, the patient received clindamycin. By: 1614 1722 Gemma Dacosta MD /nt
[~2020-02-25 12:06] MED LIST changes: +CLINDAMYCIN HC300 MG PO; +CYMBALTA20 MG PO; +DEMADEX20 MG PO; +GLUCOSAMINE HC500 M1 PO; +IBUPROFEN 200200 M1 PO; +MIRALAX17 GM PO; +NORCO 5-325 TA1 EAC1 PO; +OXYBUTYNIN CHLOR5 M1 PO; +POTASSIUM CHLO10 MEQ PO; +PRAMIPEXOLE DI1.5 MG PO; +PRAMIPEXOLE DIHY1 MG PO; +PRESERVISION A1 EAC2 PO; +PROTONIX40 M1 PO; +SENNA-TIME S T1 EACH PO; +SPIRONOLACTONE25 MG PO; +VALSARTAN160 MG PO; +VITAMIN B-6100 MG PO
[2020-02-25 12:59] VITALS: BP 161/55
[2020-02-25 14:50] VITALS: BP 161/55
--- NOTE | 2020-02-26 08:48 | EKG ---
[facility] [address] [place] [address] ELECTROCARDIOGRAM REPORT Name: JACQUES KENNEDY Room #: DEP [facility] M.R.#: [id number] Admission: 02/25/20 Attend Phys: Gemma Dacosta, Discharge: 02/25/20 Date of : 38 Report #: [id number] THIS REPORT FOR: cc: Katrin Cox MD, Stephanie B. MD Lundgren,Victor Hugo River MD [facility] ~ THIS REPORT FOR: //name// [facility] Test Date: 2020-02-25 Test Time: 12:48:49 Pat Name: JACQUES KNENEDY Department: Room: 150 2 Gender: F Education Diagnostician: ERIN : [id number] Requested By: Gemma Dacosta Order Number: [id number] MD: Victor Hugo Simon Measurements Intervals Collins Rate: 54 P: -24 NC: 264 QRS: -11 QRSD: 151 T: 152 QT: 441 QTc: 418 Interpretive Statements Sinus rhythm Prolonged NC interval Left bundle branch block No previous ECGs available for comparison Electronically Signed On 02-26-2020 8:46:22 CDT by Victor Hugo Simon [email or web address] <ELECTRONICALLY SIGNED> By: Victor Hugo Simon MD, [facility] 02/26/20 0846 1248 1248 Victor Hugo Simon MD, [facility] /EPI
== END 2020-02-25 15:43 | disposition home or self-care (01) ==
LOC: OR 12:06 → TBA 12:11 → OR 15:43
DX: T84.84XA Pain due to internal orthopedic prosthetic devices, implants and grafts, initial encounter (principal); M25.522 Pain in left elbow; I12.9 Hypertensive chronic kidney disease with stage 1 through stage 4 chronic kidney disease, or unspecified chronic kidney disease; N18.9 Chronic kidney disease, unspecified; I48.91 Unspecified atrial fibrillation; G20 Parkinson's disease; F32.9 Major depressive disorder, single episode, unspecified; F41.9 Anxiety disorder, unspecified; G47.30 Sleep apnea, unspecified; K21.9 Gastro-esophageal reflux disease without esophagitis; E05.90 Thyrotoxicosis, unspecified without thyrotoxic crisis or storm; Z98.890 Other specified postprocedural states; Z79.899 Other long term (current) drug therapy; Z79.01 Long term (current) use of anticoagulants; Z86.73 Personal history of transient ischemic attack (TIA), and cerebral infarction without residual deficits; Z88.8 Allergy status to other drugs, medicaments and biological substances; Z88.0 Allergy status to penicillin; Y83.8 Other surgical procedures as the cause of abnormal reaction of the patient, or of later complication, without mention of misadventure at the time of the procedure
CPT/HCPCS: 50010; 50101; 50386; 56527; 57006; 57091; 62110; 62900; 70005

== ENCOUNTER 2020-10-05 15:48 | Emergency (ER) | payer OTHER, BC ==
[~2020-10-05] VITALS: Ht 152.4 cm; Wt 95.3 kg
[2020-10-05 17:18] LABS: ANION GAP 6 mmol/L (7-16); BUN 47 mg/dL (7-18); CALCIUM 9.6 mg/dL (8.5-10.1); CHLORIDE 106 mmol/L (98-107); CO2 28 mmol/L (21-32); CREATININE 1.8 mg/dL (0.6-1.0); GLUCOSE 114 mg/dL (74-106); POTASSIUM 4.2 mmol/L (3.5-5.1); SODIUM 140 mmol/L (136-145)
[2020-10-05 17:24] LABS: ABSOLUTE NEUTROPHILS 9.6 thou/uL (1.4-8.2); BASOPHILS 0.4 % (0.0-2.0); EOSINOPHILS 1.1 % (0.0-3.0); HEMATOCRIT 42.3 % (37.0-47.0); HEMOGLOBIN 13.5 gm/dL (12.0-15.0); MCH 30.1 pg (26.0-34.0); MCHC 31.9 g/dL (28.0-37.0); MCV 94.4 fL (80.0-100.0); MONOCYTES 6.6 % (1.0-8.0); PLATELET COUNT 215 thou/uL (150-400); POLYS 79.9 % (36.0-66.0); RBC 4.48 mil/uL (4.20-5.00)
[2020-10-05 17:28] LABS: DIRECT BILIRUBIN 0.1 mg/dL (<0.1-0.2); SGOT 26 U/L (15-37); SGPT < 6 U/L (14-59); TOTAL BILIRUBIN 0.6 mg/dL (0.2-1.0); TOTAL PROTEIN 6.5 g/dL (6.4-8.2); TROPONIN-I <0.06 ng/mL (<0.06)
[2020-10-05 19:32] VITALS: BP 126/63
== END 2020-10-05 19:33 | disposition home or self-care (01) ==
LOC: ER 15:48
PROVIDERS: Emergency Medicine
DX: S50.11XA Contusion of right forearm, initial encounter (principal); M54.6 Pain in thoracic spine; L53.9 Erythematous condition, unspecified; I10 Essential (primary) hypertension; I48.91 Unspecified atrial fibrillation; K21.9 Gastro-esophageal reflux disease without esophagitis; E03.9 Hypothyroidism, unspecified; Z79.82 Long term (current) use of aspirin; Z79.899 Other long term (current) drug therapy; Z88.1 Allergy status to other antibiotic agents; Z88.8 Allergy status to other drugs, medicaments and biological substances; W18.39XA Other fall on same level, initial encounter; Y93.89 Activity, other specified; Y92.89 Other specified places as the place of occurrence of the external cause; Y99.8 Other external cause status

== ENCOUNTER 2021-01-30 15:49 | Inpatient (IN) | payer OTHER, BC ==
[~2021-01-30] VITALS: Ht 152.4 cm; Wt 89.4 kg
--- NOTE | ~2021-01-30 | O ---
[facility] [place] [address] OPERATIVE REPORT Name: JACQUES KENNEDY Room #: 453-P [facility] IN M.R.#: [id number] Admission: 01/30/21 Attend Phys: Orville Minor MD Discharge: Date of : 38 Report #: [id number] THIS REPORT FOR: cc: Katrin Cox MD, Stephanie B. MD Kneidel, Matthew T. MD ~ DOC #: [id number] Saul Jacobs MD DATE OF SERVICE: 01/30/2021 PREOPERATIVE DIAGNOSIS: Closed left shoulder dislocation. POSTOPERATIVE DIAGNOSIS: Closed left shoulder dislocation. PROCEDURE: Closed left shoulder reduction. SURGEON: Saul Jacobs MD ANESTHESIA: General. ESTIMATED BLOOD LOSS: None. DESCRIPTION OF PROCEDURE: The patient was brought to the operating room where she was placed under general anesthesia. Once under adequate general anesthesia, traction countertraction was performed on the patient's left upper extremity and a closed reduction of the shoulder joint was achieved as verified under x-ray examination. Once complete, the patient was noted to have multiple skin tears. These were dressed. The patient was placed into a shoulder immobilizer. There were no complications from the procedure. The patient tolerated the procedure well and was taken to the recovery room without incident. MD KAMERON Wray/BABAR By: 2007 2320 Saul Jacobs MD /moni
[2021-01-30 15:50] VITALS: BP 149/85
[2021-01-30 16:32] LABS: ABSOLUTE NEUTROPHILS 6.5 thou/uL (1.4-8.2); BASOPHILS 0.7 % (0.0-2.0); EOSINOPHILS 3.3 % (0.0-3.0); HEMATOCRIT 39.2 % (37.0-47.0); HEMOGLOBIN 12.9 gm/dL (12.0-15.0); LYMPHOCYTES 11.3 % (24.0-44.0); MCH 30.4 pg (26.0-34.0); MCHC 32.9 g/dL (28.0-37.0); MCV 92.4 fL (80.0-100.0); MONOCYTES 8.8 % (1.0-8.0); PLATELET COUNT 252 thou/uL (150-400); POLYS 75.9 % (36.0-66.0); RBC 4.25 mil/uL (4.20-5.00); WBC 8.6 thou/uL (4.0-11.0)
[2021-01-30 16:40] LABS: CREATININE 1.3 mg/dL (0.6-1.0); POTASSIUM 4.2 mmol/L (3.5-5.1)
--- NOTE | 2021-01-30 19:18 | NUR ---
SEE CONSCIOUS SEDATION PACKET FOR PROCEDURE NOTES.
[2021-01-30] MEDS ORDERED: HYDROCODON-ACE1 EAC7 PO (19:22)
[2021-01-30] MEDS ORDERED: MUPIROCIN15 GM TOP (19:23)
[2021-01-30] MEDS ORDERED: OCUVITE EYE +1 EACH PO (19:24)
[2021-01-30] MEDS ORDERED: VENTOLIN HFA 1818 GM INH (19:26)
[2021-01-30] MEDS ORDERED: TIROSINT88 MCG PO (19:26)
[2021-01-30] MEDS ORDERED: ZANAFLEX4 M2 PO (19:26)
[2021-01-30] MEDS ORDERED: VITAMIN B6100 MG/2.5 PO (19:26)
[2021-01-30 19:40] VITALS: BP 153/43
[2021-01-30 22:05] VITALS: BP 191/81
[2021-01-30 22:32] VITALS: BP 151/99
[2021-01-30 23:00] VITALS: BP 124/54
[2021-01-31] VITALS (7 sets, daily range): BP systolic 143–174; BP diastolic 38–73
--- NOTE | 2021-01-31 00:04 | NUR ---
Pt admitted from PACU sp closed left shoulder reduction by ,accompanied by son. A/OX4,VSS. C/o pain to left shoulder with movement. Left arm swolled and bruised from attempts to manipulate it ER.Has a large skin tear underneath immobilizer;pictures not taken on admission per orders not to remove it. Son and aware of skin tear. Pt uses a stand up lift per son and takes meds whole in applesauce. Pt stated she cannot handle Morphine and prefers Woodbine;confirmed by dtr. Purewick applied,uses bedpan for BM.CPAP order implemented and in place, pt resting quietly at this time w/o any distress noted. Fall precautions in place,will continue to monitor pt.
[2021-01-31 05:34] LABS: HEMATOCRIT 41.9 % (37.0-47.0); HEMOGLOBIN 13.3 gm/dL (12.0-15.0)
[2021-01-31 05:52] LABS: POTASSIUM 5.8 mmol/L (3.5-5.1)
--- NOTE | 2021-01-31 11:34 | NUR ---
PT ADMITTED RELATED TO LEFT SHOULDER DISLOCATION. CM REVIEWED CHART AND SPOKE WITH CARE TEAM. CM MET WITH PT AND SON CRIS AT BEDSIDE THIS DAY. PT APPEARED TO BE A&O X4. CM ROLE INTRODUCED. 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 PT RESIDES AT [facility]. PT INDICATED SHE HAS A MANUAL WC, FWW, PUREWIC CATHETER SYSTEM, CPAP. PT INDICATED SHE HAS A PRIVATE CAREGIVER WHO ASSISTS PT WITH PERSONAL CARE AND NURSE ORTHOPAEDIC SERVICES. PT HAD [facility] IN THE PAST. PT INDICATED SHE HOPES TO RETURN TO [facility] ONCE MEDICALLY STABLE. CM TO SEND CLINICAL TO [facility]. CM FOLLOWING REGARDING DC PLANNING.
--- NOTE | 2021-01-31 12:57 | NUR ---
Assess due to RD consulted for wt change. Admit with left shoulder dislocation following a fall. Hx CHF, CVA, Parkinsons. Upon visit, wound care team assisting with skin tears. Pt grimmacing. Son available and able to state appetite has been fair while pt at Rehab. Did not like heart healthy diet she had been on. Wts down about 3 lbs. Prior wts as high as 210-230 lb however son reports had struggles with fluid overload. Currently on clear liquids-spoke with RN to address diet getting advanced. Low nutrition risk
--- NOTE | 2021-01-31 18:17 | NUR ---
ASSUMED CARE OF PATIENT AT SHIFT CHANGE; 0700. ASSESSMENT CHARTED. MEDICATIONS ADMINISTERED PER EMAR. VSS. PATIENT IS A&OX4 AND ABLE TO MAKE NEEDS KNOW; SLURRED SPEECH DUE TO PREVIOUS CVA. PUREWICK IN PLACE; UP X 1 WITH OT/PT AND TOLERATED WELL. PATIENT HAD A CT THIS DAY REVEALING SHOULDER DISCLOATED ONCE AGAIN. DR. LEWIS CONSULTED. WOUND CARE TEAM SAW PATIENT FOR SKIN TEAR ON L FA; PICTURE TAKEN AND POSTED ON CHART. WOUND CARE TEAM INDICATED THAT NO NURSING INTERVENTIONS ARE TO BE DONE WITH L FOREARM TO GIVE IT TIME TO HEAL. PATIENT C/O PAIN ON L SHOULDER; RELIEF NOTED W PRN PO ANALGESIC. SON AT BEDSIDE AND WOULD LIKE TO BE UPDATED W ANY FURTHER INTERVENTION. PATIENT DENIES ANY FURTHER NEEDS. WILL CONTINUE TO MONITOR AND FOLLOW PLAN OF CARE
--- NOTE | 2021-02-01 04:39 | NUR ---
Assumed pt care at 1900. A/OX4,drowsy and wanted to rest. VSS. C/o pain to left shoulder,medicated per EMAR with relief reported. Dsg under immobilizer C/D/I,pt able to move her fingers,bruising persists on LUE. Resting quietly w/o any distress CPAP/O2 in place.Purewick applied and patent. Fall precautions in place, will continue to monitor pt.
[2021-02-01 05:36] LABS: CALCIUM 8.8 mg/dL (8.5-10.1); CREATININE 1.5 mg/dL (0.6-1.0)
[2021-02-01 05:50] LABS: POTASSIUM 4.5 mmol/L (3.5-5.1)
[2021-02-01 08:00] VITALS: BP 145/75
--- NOTE | 2021-02-01 14:44 | NUR ---
ORTHO INDICATED THAT PT'S ARM MAY NOT BE FULLY LOCATED AND THAT SHE MIGHT NEED SURGICAL INTERVENTION. EDEN AND SHYANNE WERE TO DISCUSS. AWAITING ORTHO INPUT. 5N TRANSMISSION ASSEMBLER VISITED WITH PT AND SON AT BEDSIDE THIS DAY AND INDICATED THAT PT WOULD BE MORE APPROPRIATE FOR SKILLED ONCE MEDICALLY STABLE. THEY WANTED FULL REFERRAL SENT TO [facility]. CM FAXED REFERRAL AND NOTIFIED LIAISON. SHE INDICATED THEY HAVE BEDS TOMORROW AND SATURDAY. CM FOLLOWING REGARDING DC PLANNING.
--- NOTE | 2021-02-01 18:35 | NUR ---
Assumed pt care at 7am.Pt in bed sleeping on and off with son at bs.Assessment completed.vss.Assisted pt tray setup at all meals.Fair appetite noted.Made several calls to Dr FREITAS office and surgery dept regarding plan for pt prior to dc to [facility] rehab. He finally came around 1830 to see pt and said no plan for surgery and okay for pt to dc in am as plan for rehab.Pt son aware.Pt in bed at present eating dinner.Pain med given once this shift with relief.Will continue to monitor.
[2021-02-01 19:32] VITALS: BP 133/58
--- NOTE | 2021-02-02 05:27 | NUR ---
Assumed pt care at 1900. A/OX4,VSS. C/o pian to left shoulder medicated per EMAR with relief reported. Purewick replaced and patent with yellow urine. LUE on immobilizer,dsg underneath C/D/I. Fall precautions in place,calls approp for help. Resting quietly w/o any distress,CPAP in place will continue to monitor pt.
[2021-02-02 07:38] VITALS: BP 147/50
[2021-02-02 08:00] VITALS: BP 147/50
[2021-02-02 08:43] VITALS: BP 147/50
--- NOTE | 2021-02-02 11:34 | NUR ---
CARE TEAM INDICATED THAT PT IS MEDICALLY STABLE TO DC TO [facility] OP THIS DAY. CM FAXED ORDERS. CHART COPY MADE. CM MET WITH PT AT BEDSIDE THIS AM AND SHE IS AWARE AND AGREEABLE. CM CALLED PT'S SON AND HE IS AWARE AND AGREEABEL WELL. JOSE A PAUL IS TO ASSIST WITH DC TRANSITION THIS AFTERNOON. [facility]ORT ARRANGED FOR 12:30-1300. NURSE GIVEN NUMBER FOR REPORT. NO OTHER CM INTERVENTION INDICATED. CASE CLOSED.
--- NOTE | 2021-02-02 11:37 | NUR ---
Assumed pt care at 7am.Pt in bed resting without c/o.Assessment completed.vss. Pt wanted know when she will be dc to [facility] care today.Info given per cm report.Son called for updates.Chart copy done and report will be given prior to dc pt between 1230and [address] Alvarez [address],wanted drsg to left arm stay without replacement till seen pt at [facility].Will continue to monitor.
[2021-02-02] MEDS ORDERED: HYDROCODON-ACE1 EAC7 PO (13:56)
== END 2021-02-02 12:56 | DRG 563 ==
LOC: ER 15:49 → EROBS 18:48 → 4W 18:48
PROVIDERS: Emergency Medicine; Orthopaedic Surgery Foot and Ankle Surgery; ADMIT Hospitalist; ATTEND Hospitalist
PROC: 5A09457 Assistance with Respiratory Ventilation, 24-96 Consecutive Hours, Continuous Positive Airway Pressure (ICD-10-PCS; principal; 2021-01-30)
PROC: 0RSKXZZ Reposition Left Shoulder Joint, External Approach (ICD-10-PCS; principal; 2021-01-30)
DX: M24.412 Recurrent dislocation, left shoulder (principal); E03.9 Hypothyroidism, unspecified; I10 Essential (primary) hypertension; I48.91 Unspecified atrial fibrillation; F32.9 Major depressive disorder, single episode, unspecified; F41.9 Anxiety disorder, unspecified; I73.9 Peripheral vascular disease, unspecified; K21.9 Gastro-esophageal reflux disease without esophagitis; S41.112A Laceration without foreign body of left upper arm, initial encounter; G20 Parkinson's disease; S40.022A Contusion of left upper arm, initial encounter; E87.5 Hyperkalemia; R53.81 Other malaise; N32.81 Overactive bladder; I73.00 Raynaud's syndrome without gangrene; M24.512 Contracture, left shoulder; Z20.822 Contact with and (suspected) exposure to COVID-19; Z88.1 Allergy status to other antibiotic agents; Z88.8 Allergy status to other drugs, medicaments and biological substances; Z86.73 Personal history of transient ischemic attack (TIA), and cerebral infarction without residual deficits; W01.0XXA Fall on same level from slipping, tripping and stumbling without subsequent striking against object, initial encounter; Y93.89 Activity, other specified; Y92.89 Other specified places as the place of occurrence of the external cause; Y99.8 Other external cause status
CPT/HCPCS: 10040; 50010; 50101; 50935; 62110; 62900; 70005